=== PATIENT | female | born 1990 | race Two or more races ===

== ENCOUNTER 2020-04-09 15:50 | Emergency (ER) | payer OTHER ==
[~2020-04-09] VITALS: Ht 172.7 cm; Wt 59.1 kg
[2020-04-09] MEDS ORDERED: LEVE500T53 PO (16:30)
[2020-04-09 17:07] VITALS: BP 105/62
== END 2020-04-09 17:25 | disposition home or self-care (01) ==
LOC: EMS 16:00
DX: S63.501A Unspecified sprain of right wrist, initial encounter (principal); X50.0XXA Overexertion from strenuous movement or load, initial encounter; Y93.68 Activity, volleyball (beach) (court); Y92.89 Other specified places as the place of occurrence of the external cause; Y99.8 Other external cause status

== ENCOUNTER 2020-05-02 16:29 | Emergency (ER) | payer OTHER ==
[~2020-05-02] VITALS: Ht 154.9 cm; Wt 56.8 kg
[~2020-05-02 16:29] MED LIST: LEVE500T53 PO
[2020-05-02 17:02] VITALS: BP 114/67
[2020-05-02 17:21] LABS: COVID AG,FIA SOURCE NASOPHARYNGEAL
== END 2020-05-02 19:35 | disposition home or self-care (01) ==
LOC: EMS 16:29
DX: Z20.828 Contact with and (suspected) exposure to other viral communicable diseases (principal); J45.909 Unspecified asthma, uncomplicated
CPT/HCPCS: 87426